=== PATIENT | male | born 1990 | race Caucasian/White ===

== ENCOUNTER 2018-10-23 15:18 | Emergency (ER) | payer OTHER | END 2018-10-23 19:04 | disposition home or self-care (01) | LOC: FTE 15:18 | DX: S02.80XA Fracture of other specified skull and facial bones, unspecified side, initial encounter for closed fracture (principal); R51 Headache; Y04.0XXA Assault by unarmed brawl or fight, initial encounter | CPT/HCPCS: 70450; 72125; 99284-25 ==